=== PATIENT | female | born 1995 | race African-American/Black ===

== ENCOUNTER → 2016-12-24 | Outpatient (CLI) | payer BC ==
[2016-12-24 08:28] LABS: ALT 34 U/L (9-52); AST 28 U/L (14-36); Alkaline Phosphatase 37 U/L (38-126); Anion Gap 9 mmol/L; Blood Urea Nitrogen 10 mg/dL (7-17); Calcium 9.9 mg/dL (8.4-10.2); Carbon Dioxide 26 mmol/L (22-30); Chloride 105 mmol/L (98-107); Cholesterol 226 mg/dL (<200); Glucose 87 mg/dL (74-99); HDL Cholesterol 82 mg/dL (40-60); Non-African American GFR(MDRD) >60 (>60 ml/min/1.73 sqM); Potassium 4.7 mmol/L (3.5-5.1); Sodium 140 mmol/L (137-145); Total Bilirubin 0.5 mg/dL (0.2-1.3); Total Protein 7.6 g/dL (6.3-8.2); Triglycerides 66 mg/dL (<150)
== END | disposition home or self-care (01) ==
LOC: LABWHC1 07:29
PROVIDERS: ATTEND Internal Medicine Endocrinology, Diabetes & Metabolism
DX: E10.65 Type 1 diabetes mellitus with hyperglycemia (principal); E03.8 Other specified hypothyroidism
CPT/HCPCS: 36415; 80053; 80061; 82043; 84443

== ENCOUNTER → 2017-05-09 | Outpatient (CLI) | payer BC ==
[2017-05-09 12:37] LABS: Cholesterol 201 mg/dL (<200); HDL Cholesterol 74 mg/dL (40-60)
== END | disposition home or self-care (01) ==
LOC: LABWHC1 11:39
PROVIDERS: ATTEND Internal Medicine Endocrinology, Diabetes & Metabolism
DX: E10.65 Type 1 diabetes mellitus with hyperglycemia (principal)
CPT/HCPCS: 36415; 80061

== ENCOUNTER → 2018-10-09 | Outpatient (CLI) | payer OTHER ==
[2018-10-09 17:56] LABS: Albumin 4.4 g/dL (3.80-4.90); Albumin/Globulin Ratio 1.83 (1.20-2.10); Anion Gap 5.9 mmol/L (4.00-12.00); Calcium 9.6 mg/dL (8.7-10.3); Carbon Dioxide 29.1 mmol/L (21.6-31.8); Globulin 2.4 g/dL (1.6-3.3); LDL Cholesterol,Calculated 133.2 mg/dL (0.0-131.0); Potassium 4.1 mmol/L (3.5-5.5); Total Bilirubin 0.6 mg/dL (0.3-1.2); Total Protein 6.8 g/dL (6.2-8.2); VLDL Calculation 14.8 mg/dL (5.00-40.00)
[2018-10-09 18:52] LABS: Hemoglobin A1C 9.3 % (4.0-6.0)
== END | disposition home or self-care (01) ==
LOC: LABWHC1 11:21
PROVIDERS: ATTEND Internal Medicine Endocrinology, Diabetes & Metabolism
DX: E10.65 Type 1 diabetes mellitus with hyperglycemia (principal); E03.8 Other specified hypothyroidism
CPT/HCPCS: 36415; 80053; 80061; 82043; 82570; 83036; 84443

== ENCOUNTER → 2020-04-18 | Outpatient (CLI) | payer BC ==
[2020-04-18 15:13] LABS: Hemoglobin A1C 9.5 % (4.0-6.0)
[2020-04-18 16:52] LABS: ALT 10 U/L (8-44); AST 14 U/L (13-35); Albumin/Globulin Ratio 1.59 (1.60-3.17); Alkaline Phosphatase 51 U/L (41-126); BUN/Creat Ratio 11.11 Ratio (12.00-20.00); Calcium 9.6 mg/dL (8.7-10.3); Carbon Dioxide 27.1 mmol/L (21.6-31.8); Chloride 105 mmol/L (96-109); Chol/HDL Ratio 2.42; Cholesterol 225 mg/dL (0-200); Globulin 2.7 g/dL (1.6-3.3); Glucose 75 mg/dL (70-110); Non-African American GFR(CKD) 88.9 (60.0-200.0); Potassium 3.9 mmol/L (3.5-5.5); Sodium 139 mmol/L (135-145); Total Bilirubin 0.3 mg/dL (0.2-1.2); Triglycerides <50.0 mg/dL (0.0-149.0)
== END | disposition home or self-care (01) ==
LOC: LABWHC1 07:11
PROVIDERS: ATTEND Internal Medicine Endocrinology, Diabetes & Metabolism
DX: E10.65 Type 1 diabetes mellitus with hyperglycemia (principal)
CPT/HCPCS: 36415; 80053; 80061; 83036; 84443

== ENCOUNTER → 2021-06-28 | Outpatient (CLI) | payer BC ==
--- NOTE | 2021-06-29 10:18 | US ---
EXAMINATION TYPE: US pelvic complete DATE OF EXAM: 06/28/2021 COMPARISON: NONE CLINICAL HISTORY: N94.10 Unspecified dyspareunia. Intermittent pain during intercourse x couple years TECHNIQUE: . Transabdominal sonographic images of the pelvis were acquired. Date of LMP: 06/28/2021 EXAM MEASUREMENTS: Uterus: 8.2 x 3.5 x 5.0 cm Endometrial Stripe: 0.4 cm Right Ovary: 3.7 x 1.6 x 2.0 cm Left Ovary: cm 1. Uterus: anteverted 2. Endometrium: wnl 3. Right Ovary: wnl 4. Left Ovary: not seen within left adnexa 5. Bilateral Adnexa: wnl 6. Posterior cul-de-sac: wnl Midline pelvis superior to uterus and bladder: 8.3 x 5.1 x 8.3cm anechoic mass seen Anteverted uterus. Superior to uterus and bladder there is 8.3 x 5.1 x 8.3 cm focal fluid collection or more likely thin-walled cyst or cystic mass. No free fluid in pelvic cul-de-sac. Normal-sized right ovary with peripheral follicles. Left ovary not clearly seen. IMPRESSION: There is 8.3 cm thin-walled cyst or cystic lesion above the bladder would favor left ovar mikhail in etiology. Differential would include large bladder diverticulum. Other etiologies not excluded . Advise follow-up imaging with contrast-enhanced CT and/or MRI to further evaluate.
== END | disposition home or self-care (01) ==
LOC: RADUSWWP 16:19
PROVIDERS: ATTEND Family Medicine
DX: N94.10 Unspecified dyspareunia (principal)
CPT/HCPCS: 76856

== ENCOUNTER → 2021-08-02 | Outpatient (CLI) | payer BC ==
--- NOTE | 2021-08-03 10:39 | MR ---
MRI abdomen with and without contrast. HISTORY: Dominant no pelvic swelling rule out mass. COMPARISON: None. TECHNIQUE: Multiecho multiplanar images of the abdomen were obtained with and without contrast. Multi phase postcontrast imaging was obtained. FINDINGS: The visualized lung bases are clear. The gallbladder is normal and there is no gallstones or biliary ductal dilatation or gallbladder dist ention. There is no focal mass or organomegaly involving the liver, pancreas, spleen or adrenal glands. The kidneys excrete contrast promptly and symmetrically and there is no solid renal mass or hydroneph rosis. There is no retroperitoneal adenopathy or hemorrhage in the caliber of the abdominal aorta 11. 6 x 8.5 by lobe fluid-filled mass with a thin imperceptible wall. It is in the midline pelvis in the projects slightly greater to the right of midline is normal. There is no free intraperitoneal air or fluid. There is no bowel dilatation to suggest obstruction The pelvis is not imaged in its entirety but on the coronal images there is a large 8.5 x 11.6 cm thi n-walled fluid-filled bilobed mass in the pelvis projecting greater to the right of midline. This is situated immediately superior to the urinary bladder and most likely represents a large ovarian cyst MRI dedicated to the pelvis would be useful for further evaluation. IMPRESSION: 1. No abnormality within the abdomen. 2. Large fluid-filled mass within the pelvis possibly representing an ovarian cyst. A dedicated MRI o f the pelvis would be useful for further evaluation, see above.
== END | disposition home or self-care (01) ==
LOC: RADMRIMAIN 20:12
PROVIDERS: ATTEND Family Medicine
DX: R19.00 Intra-abdominal and pelvic swelling, mass and lump, unspecified site (principal)
CPT/HCPCS: 74183; A9585

== ENCOUNTER → 2021-08-05 | Outpatient (CLI) | payer BC ==
--- NOTE | 2021-08-06 06:41 | MR ---
EXAMINATION TYPE: MR pelvis wo/w con DATE OF EXAM: 08/05/2021 COMPARISON: MR scan 08/02/2021 HISTORY: Pelvic pain after intercourse CONTRAST: Standard multiplanar, multisequence MRI departmental protocol images were obtained without contrast a nd with 7 mL intravenous Gadavist gadolinium contrast. Bladder distends smoothly. Uterus is retroverted and anteflexed. There is small amount of free fluid in the cul-de-sac. There is a large cyst in the pelvis which is sharply marginated and measures 11 x 6.8 cm. This is in the midline and consistent with ovarian cyst. Sacroiliac joints appear intact. Hip joints appear intact. Proximal femurs appear normal. Contrast images show no pathologic enhancement. IMPRESSION: Large cystic pelvic mass not changed in size compared to recent exam. This is consistent with ovarian cyst. No evidence of solid pelvic mass.
== END | disposition home or self-care (01) ==
LOC: RADMRIMAIN 20:11
PROVIDERS: ATTEND Family Medicine
DX: R19.00 Intra-abdominal and pelvic swelling, mass and lump, unspecified site (principal)
CPT/HCPCS: 72197; A9585

== ENCOUNTER 2021-10-18 06:05 | Day surgery (SDC) | payer BC ==
[2021-10-14 08:53] VITALS: BMI 27.1
--- NOTE | 2021-10-17 14:50 | P.HPOB ---
History of Present Illness H&P Date: 10/17/21 Chief Complaint: pelvic pain 25 year old G0 presents for diagnostic laparoscopy and possible aspiration of ovarian cyst with da cheri. Review of Systems All systems: negative Constitutional: Denies chills, Denies fever Eyes: denies blurred vision, denies pain Ears, nose, mouth and throat: Denies headache, Denies sore throat Cardiovascular: Denies chest pain, Denies shortness of breath Respiratory: Denies cough Gastrointestinal: Denies abdominal pain, Denies diarrhea, Denies nausea, Denies vomiting Genitourinary: Denies dysuria, Denies hematuria Musculoskeletal: Denies myalgias Integumentary: Denies pruritus, Denies rash Neurological: Denies numbness, Denies weakness Psychiatric: Denies anxiety, Denies depression Endocrine: Denies fatigue, Denies weight change Past Medical History Past Medical History: Diabetes Mellitus, Thyroid Disorder Additional Past Medical History / Comment(s): type I diabetes History of Any Multi-Drug Resistant Organisms: None Reported Past Surgical History: No Surgical Hx Reported Past Anesthesia/Blood Transfusion Reactions: No Reported Reaction Smoking Status: Never smoker - Past Family History Mother Family Medical History: No Reported History Medications and Allergies Home Medications Medication Instructions Recorded Confirmed Type Insulin Aspart (For Pump) [NovoLOG 0.01 unit SQ-PUMP CONTINUOUS 10/14/21 10/14/21 History (For Pump)] Levothyroxine Sodium [Synthroid] 50 mcg PO DAILY 10/14/21 10/14/21 History Allergies Allergy/AdvReac Type Severity Reaction Status Date / Time No Known Allergies Allergy Verified 10/14/21 08:44 Exam Osteopathic Statement: *. No significant issues noted on an osteopathic structural exam other than those noted in the History and Physical/Consult. HEart: RRR Lungs: CTAB Abdomen: neg ghada's Extremeties: neg ghada's Assessment and Plan (1) Ovarian cyst Status: Acute Code(s): N83.209 - UNSPECIFIED OVARIAN CYST, UNSPECIFIED SIDE SNOMED Code(s): 10993346 Plan: 1. diagnostic laparoscopy with possible aspiration of ovarian cyst, possible oopherectomy using da cheri.
[~2021-10-18 06:05] MED LIST: DEXAMETHASONE SOD PHOSPHATE 4 MG/ML 1 ML VIAL IV ONE; LACTATED RINGERS 1,000 ML IV SCH; MIDAZOLAM 2 MG/2 ML VIAL IV PRN; ONDANSETRON 4 MG/2 ML VIAL IVP ONE; Pre Op ABX Message 1 EACH MISC MISCELLANE ONE; SCOPOLAMINE 1.5MG/72HR PATCH TRANSDERM ONE
[2021-10-18 07:03] LABS: Glucose,Whole Blood 275 mg/dL (75-99)
[2021-10-18] MEDS ORDERED: MIDAZOLAM 2 MG/2 ML VIAL IVP ONE (07:21)
[2021-10-18] MEDS ORDERED: fentaNYL (PF) 50 MCG/ML 2 ML AMP IVP ONE (07:21)
[2021-10-18] MEDS ORDERED: fentaNYL (PF) 50 MCG/ML 2 ML AMP ONE (07:30)
[2021-10-18] MEDS ORDERED: PHENYLEPHRINE-0.9% NACL SYG 1,000 MCG/10 ML SYRINGE ONE (07:30)
[2021-10-18] MEDS ORDERED: NEOSTIGMINE 1 MG/ML 10 ML VIAL ONE (07:30)
[2021-10-18] MEDS ORDERED: MIDAZOLAM 2 MG/2 ML VIAL ONE (07:30)
[2021-10-18] MEDS ORDERED: ROCURONIUM 10 MG/ML (5 ML VIAL) IV ONE (07:30)
[2021-10-18] MEDS ORDERED: PROPOFOL 10 MG/ML 20 ML VIAL IV ONE (07:30)
[2021-10-18] MEDS ORDERED: SODIUM CHLORIDE 0.9% (PF) 10 ML VIAL ONE (07:30)
[2021-10-18] MEDS ORDERED: SUCCINYLCHOLINE CHLORIDE 100 MG/5 ML SYR IV ONE (07:30)
[2021-10-18] MEDS ORDERED: GLYCOPYRROLATE 0.2 MG/ML 2 ML VIAL ONE (07:30)
[2021-10-18] MEDS ORDERED: ROPIVACAINE 5 MG/ML 30 ML VIAL ONE (07:30)
[2021-10-18] MEDS ORDERED: BUPIVACAINE (PF) 0.25% 30 ML VIAL SQ ONE (08:16)
--- NOTE | 2021-10-18 08:33 | P.ANPRN ---
Procedure Note - Anesthesia - Nerve Block Performed Bilateral Erector Spinae Single Time Out Performed: Yes (720) Date of Procedure: 10/18/21 Procedure Start Time: Procedure Stop Time: Location of Patient: PreOp Indication: Acute Post-Operative Pain, Requested by Surgeon Specifically requested for management of pain by DrLilly: Shannon Merrill Sedation Type: Sedate with meaningful contact maintained Preparation: Sterile Prep Position: Supine Catheter: None Needle Types: Pajunk Needle Gauge: 21 Ultrasound used to visualize needle placement: Yes Ultrasound used to observe medication spread: Yes Injectate: 0.5% Ropivacaine (see comment for volume) (15cc + 15cc nacl pf each side) Blood Aspirated: No Pain Paresthesia on Injection Noted: No Resistance on Injection: Normal Image Stored and Saved: Yes Events: Uneventful and Well Tolerated
[2021-10-18] MEDS ORDERED: LACTATED RINGERS 1,000 ML IV ONE ×2 (08:41→10:20)
--- NOTE | 2021-10-18 08:51 | P.OP ---
Date of Procedure: 10/18/21 Preoperative Diagnosis: 1. pelvic pain 2. ovarian cyst Postoperative Diagnosis: 1. pelvic pain 2. ovarian cyst on left Procedure(s) Performed: Agnostic laparoscopy with aspiration of left ovarian cyst using da Lidia Anesthesia: PAULINO Surgeon: Shannon Merrill Estimated Blood Loss (ml): 3 IV fluids (ml): 300 Urine output (ml): 250 Pathology: none sent Condition: stable Disposition: PACU Operative Findings: Large left ovarian cyst with 250 mL of serous fluid aspirated. Normal uterus and normal fallopian tubes and normal right ovary and tube Description of Procedure: Patient taken the operating room where general anesthesia was obtained without difficulty. She is prepped and draped in normal sterile fashion dorsal lithotomy position, legs placed in the Cristi stirrups. Weighted speculum placed in the vagina and the anterior lip the cervix was grasped with single-tooth tenaculum. The uterus sounded to 9 cm. the kroner manipulator was placed. Pérez catheter was also placed. Attention was then turned to the abdomen and gloves were changed. A 5 mm supraumbilical incision was made the scalpel and a 5 mm optical trocar was placed under direct visualization. 10 cm to the right of this and 2 cm down a 5 mm incision was made and 8 mm da Lidia port was placed under direct visualization. Same measurements on the opposite side of the patient's abdomen, the 5 mm incision was made and 8 mm da Lidia port was placed under direct visualization. In the left upper quadrant a 10 mm incision was made and a 10 mm optical trocar was placed under direct visualization. The 5 mm optical trocar was then replaced with the 8 mm da Lidia camera port. The laparoscopic needle aspirator was placed through a port under direct visualization. To a syringe and fluid was aspirated from the ovarian cyst. 250 mL of serous fluid was removed. The robot was docked on patient's right side. The camera was introduced and then the monopolar curved scissor and [place] bipolar placed under direct visualization. I broke scrub and went to the physician console. I opened the whole in the ovarian cyst a little more with the monopolar curved scissors and the suction was introduced and more fluid was removed. The larger hole was made in the cyst so that the fluid would not reaccumulate. The ovary itself looked like good healthy ovarian tissue, this was placed into the pelvis the right fallopian tube was viewed and normal. Hemostasis was again assured and the pelvis was irrigated. All instruments were removed from the abdomen and the robot was undocked. I scrubbed back in to perform a cystoscopy. There were jets from both ureteral orifices. The abdominal incisions were closed with 4-0 Vicryl in a subcuticular fashion. Patient tolerated the procedure well, sponge and instrument counts correct 2 and she was taken to recovery room in stable condition condition
[2021-10-18 09:02] VITALS: TEMP 98.7
[2021-10-18 09:02] LABS: Glucose,Whole Blood 259 mg/dL (75-99)
[2021-10-18] MEDS: HYDROmorphone 0.5 MG/0.5 ML SYRINGE IVP PRN ×2 (09:18→09:32)
[2021-10-18] MEDS ORDERED: ONDANSETRON 4 MG/2 ML VIAL IVP ONE (09:24)
[2021-10-18 11:25] VITALS: BP 119/71; PULSE 78; RESP 18
== END 2021-10-18 11:55 | disposition home or self-care (01) ==
LOC: OR 06:05
PROVIDERS: ATTEND Obstetrics & Gynecology
DX: N83.202 Unspecified ovarian cyst, left side (principal); E07.9 Disorder of thyroid, unspecified; E10.9 Type 1 diabetes mellitus without complications; Z79.890 Hormone replacement therapy; Z79.4 Long term (current) use of insulin; Z96.41 Presence of insulin pump (external) (internal)
CPT/HCPCS: 64999; 49322; J2250; J2710; J2405; J3010; J2795; J2370; J0330; J2704; J1170; J1790

== ENCOUNTER → 2022-03-17 | Outpatient (CLI) | payer BC ==
[2022-03-17 10:52] LABS: Microalbumin Creatinine Ratio <30 mg/g Creat (0-30)
[2022-03-17 10:57] LABS: ALT 7 U/L (8-44); AST 16 U/L (13-35); African American GFR (CKD) 137.6 (60.0-200.0); Albumin 4.3 g/dL (3.8-4.9); Albumin/Globulin Ratio 1.26 (1.60-3.17); Alkaline Phosphatase 62 U/L (41-126); BUN/Creat Ratio 16.71 Ratio (12.00-20.00); Blood Urea Nitrogen 11.7 mg/dL (9.0-27.0); Calcium 9.5 mg/dL (8.7-10.3); Carbon Dioxide 24.3 mmol/L (20.0-27.5); Chloride 101 mmol/L (96-109); Globulin 3.4 g/dL (1.6-3.3); Glucose 140 mg/dL (70-110); LDL Cholesterol,Calculated 140.6 mg/dL (0.0-131.0); Non-African American GFR(CKD) 118.7 (60.0-200.0); Potassium 4.3 mmol/L (3.5-5.5); Sodium 136 mmol/L (135-145); Total Protein 7.7 g/dL (6.2-8.2); VLDL Calculation 11.78 mg/dL (5.00-40.00)
== END | disposition home or self-care (01) ==
LOC: LABWHC1 08:07
PROVIDERS: ATTEND Internal Medicine Endocrinology, Diabetes & Metabolism
DX: E10.65 Type 1 diabetes mellitus with hyperglycemia (principal); E03.8 Other specified hypothyroidism
CPT/HCPCS: 36415; 80053; 80061; 82043; 82570; 84443

== ENCOUNTER → 2023-07-29 | Outpatient (CLI) | payer BC ==
[2023-07-29 11:46] LABS: ALT 10 U/L (8-44); AST 14 U/L (13-35); Albumin 4.1 d/dL (3.8-4.9); Albumin/Globulin Ratio 1.37 Ratio (1.60-3.17); Alkaline Phosphatase 57 U/L (41-126); BUN/Creat Ratio 14.25 Ratio (12.00-20.00); Blood Urea Nitrogen 11.4 mg/dL (9.0-27.0); Calcium 9.6 mg/dL (8.7-10.3); Carbon Dioxide 24.9 mmol/L (21.6-31.8); Chloride 101 mmol/L (96-109); Chol/HDL Ratio 3.06 Ratio; Glucose 182 mg/dL (70-110); Potassium 4.7 mmol/L (3.5-5.5); Sodium 136 mmol/L (135-145); Total Bilirubin <0.2 mg/dL (0.3-1.2); Total Protein 7.1 d/dL (6.2-8.2)
[2023-07-29 19:49] LABS: Microalbumin Creatinine Ratio <27 mg/g Cr (0-30); Urine Creatinine 44.4 mg/dL (28.0-217.0)
== END | disposition home or self-care (01) ==
LOC: LABWHC1 08:05
PROVIDERS: ATTEND Internal Medicine Endocrinology, Diabetes & Metabolism
DX: E10.65 Type 1 diabetes mellitus with hyperglycemia (principal); E03.8 Other specified hypothyroidism; E55.9 Vitamin D deficiency, unspecified
CPT/HCPCS: 36415; 80053; 80061; 82043; 82306; 82570; 84443

== ENCOUNTER 2023-08-15 10:28 | Emergency (ER) | payer BC ==
--- NOTE | 2023-08-15 10:56 | ED ---
Female Urogenital HPI - General Chief complaint: Urogenital Stated complaint: possible uti Time Seen by Provider: 08/15/23 10:34 Source: patient, RN notes reviewed Mode of arrival: ambulatory Limitations: no limitations - History of Present Illness Initial comments: This is a 27-year-old female who presents to the emergency department for concerns of a UTI. States that over the last 2 days she has had increased urinary frequency, pressure, burning, and dribbling. She's been drinking water and taking AZO, however she has not gotten better. States she is diabetic and prone to UTIs, and this feels the same. Denies any concerns for STD exposure. She does not have pain in the back, fevers, chills, nausea, or vomiting. MD Complaint: dysuria - Related Data Home Medications Medication Instructions Recorded Confirmed Insulin Aspart (For Pump) [NovoLOG 0.01 unit SQ-PUMP CONTINUOUS 10/14/21 11/14/22 (For Pump)] Levothyroxine Sodium [Synthroid] 50 mcg PO DAILY 10/14/21 11/14/22 Ibuprofen [Motrin Ib] 200 mg PO DIRECTED PRN 11/14/22 11/14/22 Previous Rx's Medication Instructions Recorded Acetaminophen-Codeine 300-30mg 1 - 2 tab PO Q6H PRN #20 tablet 11/20/22 [Tylenol #3] Ibuprofen [Motrin] 600 mg PO Q6HR PRN #30 tab 11/20/22 Nitrofurantoin Monohyd/M-Cryst 100 mg PO Q12HR 5 Days #10 cap 08/15/23 [Macrobid] Phenazopyridine [Pyridium] 200 mg PO TID PRN #9 tablet 08/15/23 Allergies Allergy/AdvReac Type Severity Reaction Status Date / Time No Known Allergies Allergy Verified 08/15/23 10:31 Review of Systems ROS Statement: Those systems with pertinent positive or pertinent negative responses have been documented in the HPI. ROS Other: All systems not noted in ROS Statement are negative. Past Medical History Past Medical History: Diabetes Mellitus, Thyroid Disorder Additional Past Medical History / Comment(s): type I diabetes History of Any Multi-Drug Resistant Organisms: None Reported Past Surgical History: No Surgical Hx Reported Additional Past Surgical History / Comment(s): wisdom teeth, laproscopic for ovarian cycst Past Anesthesia/Blood Transfusion Reactions: No Reported Reaction Past Psychological History: No Psychological Hx Reported Smoking Status: Never smoker Past Alcohol Use History: Occasional Past Drug Use History: None Reported - Past Family History Mother Family Medical History: No Reported History Additional Family Medical History / Comment(s): graves disease General Exam Limitations: no limitations General appearance: alert, in no apparent distress Head exam: Present: atraumatic, normocephalic, normal inspection Respiratory exam: Present: normal lung sounds bilaterally. Absent: respiratory distress, wheezes, rales, rhonchi, stridor Cardiovascular Exam: Present: regular rate, normal rhythm, normal heart sounds. Absent: systolic murmur, diastolic murmur, rubs, gallop, clicks GI/Abdominal exam: Present: soft, normal bowel sounds. Absent: distended, tenderness, guarding, rebound, rigid Back exam: Absent: CVA tenderness (R), CVA tenderness (L) Neurological exam: Present: alert, oriented X3, CN II-XII intact Psychiatric exam: Present: normal affect, normal mood Skin exam: Present: warm, dry, intact, normal color. Absent: rash Course Vital Signs 08/15/23 08/15/23 10:28 12:10 Temperature 98.7 F 98.8 F Pulse Rate 110 H 92 Respiratory 18 16 Rate Blood Pressure 137/91 124/87 O2 Sat by Pulse 99 99 Oximetry Medical Decision Making - Medical Decision Making This is a 27-year-old female who presents to the emergency department for dysuria. Was pt. sent in by a medical professional or institution? @ -No Did you speak to anyone other than the patient for history? @ -No Did you review nursing and triage notes? @ -Yes, and I agree, it is accurate with regards to the patient's symptoms. Were old charts reviewed? @ -No Differential Diagnosis? @ -Differential Urinary Symptoms: UTI, STD, pyelonephritis, injury, yeast infection, this is not meant to be an all-inclusive list. EKG interpreted by me (3pts min.)? @ -Not obtained X-rays interpreted by me (1pt min.)? @ -Not obtained CT interpreted by me (1pt min.)? @ -Not obtained U/S interpreted by me (1pt. min.)? @ -Not obtained What testing was considered but not performed? (CT, X-rays, U/S, labs)? Why? @ -None What meds were considered but not given? Why? @ -None Did you discuss the management of the patient with other professionals? @ -No Did you reconcile home meds? @ -No Was smoking cessation discussed for >3mins.? @ -No Was critical care preformed (if so, how long)? @ -No Were there social determinants of health that impacted care today? How? (Homelessness, low income, unemployed, alcoholism, drug addiction, transportation, low edu. Level, literacy, decrease access to med. care, nursing home, rehab)? @ -No Was there de-escalation of care discussed even if they declined? (Discuss DNR or withdrawal of care, Hospice)? @ -No What co-morbidities impacted this encounter? (DM, HTN, Smoking, COPD, CAD, Cancer, CVA, Hep., AIDS, mental health diagnosis, sleep apnea, morbid obesity)? @ -DM Was patient admitted / discharged? @ -Discharged. Urinalysis was consistent with infection. Urine sent for culture. Prescription for Macrobid and Pyridium provided with dosing instructions reviewed. Advised she remain well-hydrated and follow up with her primary care provider for reevaluation. Undiagnosed new problem with uncertain prognosis? @ -None Drug Therapy requiring intensive monitoring for toxicity (Heparin, Nitro, Insulin, Cardizem)? @ -None Were any procedures done? @ -None Diagnosis/symptom? @ -UTI Acute, or Chronic, or Acute on Chronic? @ -Acute Uncomplicated (without systemic symptoms) or Complicated (systemic symptoms)? @ -Uncomplicated Side effects of treatment? @ -None Exacerbation, Progression, or Severe Exacerbation] @ -Not applicable Poses a threat to life or bodily function? @ -No Return precautions reviewed in depth, the patient is instructed to return to the emergency department with any new, worsening, or concerning symptoms. Patient verbalized understanding. This case was discussed in detail with the attending ED physician, Dr. Edmond. Presentation, findings, and treatment plan discussed in detail as well. - Lab Data Lab Results 08/15/23 08/15/23 Range/Units 10:55 10:55 Urine Color Colorless Urine Appearance Cloudy H (Clear) Urine pH 5.5 (5.0-8.0) Ur Specific Elysian 1.016 (1.001-1.035) Urine Protein Negative (Negative) Urine Glucose (UA) Negative (Negative) Urine Ketones Negative (Negative) Urine Blood Negative (Negative) Urine Nitrite Negative (Negative) Urine Bilirubin Negative (Negative) Urine Urobilinogen <2.0 (<2.0) mg/dL Ur Leukocyte Esterase Large H (Negative) Urine RBC 5 (0-5) /hpf Urine WBC 164 H (0-5) /hpf Ur Squamous Epith Cells 5 H (0-4) /hpf Urine Bacteria Rare H (None) /hpf Urine HCG, Qual Not Detected (Not Detectd) Disposition Clinical Impression: Urinary tract infection Disposition: HOME SELF-CARE Instructions (If sedation given, give patient instructions): Urinary Tract Infection in Women (ED) Additional Instructions: Return to the emergency department with any new, worsening, or concerning symptoms. Take the antibiotic as prescribed for 5 days. You can use the Pyridium up to 3 times daily for burning with urination. Follow up with your primary care provider in 1-2 days. Prescriptions: Nitrofurantoin Monohyd/M-Cryst [Macrobid] 100 mg PO Q12HR 5 Days #10 cap Phenazopyridine [Pyridium] 200 mg PO TID PRN #9 tablet PRN Reason: Pain Is patient prescribed a controlled substance at d/c from ED?: No Referrals: Marcelo Rivers DO [Primary Care Provider] - 1-2 days
[2023-08-15 11:19] LABS: Appearance,Urine Cloudy (Clear); Bacteria,Urine Rare /hpf; Bilirubin,Urine Negative (Negative); Blood,Urine Negative (Negative); Color,Urine Colorless; Glucose,Urine (UA) Negative (Negative); Ketones,Urine Negative (Negative); Leukocyte Esterase,Urine Large (Negative); Nitrite,Urine Negative (Negative); PH, Urine 5.5 (5.0-8.0); Protein,Urine Negative (Negative); RBC,Urine 5 /hpf (0-5); Specific Gravity,Urine 1.016 (1.001-1.035); Squamous Epithelial Cell,Urine 5 /hpf (0-4); Urobilinogen,Urine <2.0 mg/dL (<2.0); WBC,Urine 164 /hpf (0-5)
[2023-08-15 12:34] VITALS: BP 124/87; PULSE 92; RESP 16; TEMP 98.8
== END 2023-08-15 12:11 | disposition home or self-care (01) ==
LOC: EC 10:28
DX: N39.0 Urinary tract infection, site not specified (principal); E11.9 Type 2 diabetes mellitus without complications; E07.9 Disorder of thyroid, unspecified; Z79.890 Hormone replacement therapy; Z79.4 Long term (current) use of insulin
CPT/HCPCS: 81001; 81025; 87086; 99283

== ENCOUNTER → 2023-12-30 | Outpatient (CLI) | payer BC ==
[2023-12-30 11:30] LABS: Microalbumin Creatinine Ratio <14 mg/g Cr (0-30); Urine Creatinine 88.3 mg/dL (28.0-217.0)
[2023-12-30 11:40] LABS: ALT 8 U/L (8-44); AST 13 U/L (13-35); Albumin 4.2 g/dL (3.8-4.9); Alkaline Phosphatase 61 U/L (41-126); BUN/Creat Ratio 12.75 Ratio (12.00-20.00); Blood Urea Nitrogen 10.2 mg/dL (9.0-27.0); Calcium 9.4 mg/dL (8.7-10.3); Carbon Dioxide 25.9 mmol/L (21.6-31.8); Chloride 102 mmol/L (96-109); Glucose 126 mg/dL (70-110); Potassium 5.2 mmol/L (3.5-5.5); Sodium 138 mmol/L (135-145); Total Bilirubin <0.2 mg/dL (0.3-1.2); Total Protein 7.2 g/dL (6.2-8.2)
== END | disposition home or self-care (01) ==
LOC: LABWHC1 07:31
PROVIDERS: ATTEND Internal Medicine Endocrinology, Diabetes & Metabolism
DX: E10.65 Type 1 diabetes mellitus with hyperglycemia (principal)
CPT/HCPCS: 36415; 80053; 82043; 82570; 83036; 84443

== ENCOUNTER → 2024-01-15 | Outpatient (CLI) | payer BC ==
--- NOTE | 2024-01-15 11:14 | XR ---
EXAMINATION TYPE: XR shoulder complete 3 views LT DATE OF EXAM: 01/15/2024 Comparison: None Clinical History: 28-year-old female M25.512 PAIN IN LEFT SHOULDER Findings: There is some irregularity of the acromion. Limited assessment due to overlying external artifact. AC joint appears congruent and intact. Subacromial space is preserved. Otherwise, no acute fracture, jain bluxation, dislocation seen. Impression: There is irregularity at the tip of the acromion adjacent to the AC joint. Query any focal pain or pr evious trauma to this location to exclude an age indeterminate chip fracture. Otherwise, no acute oss eous abnormality seen.
== END | disposition home or self-care (01) ==
LOC: RADXRMAIN 10:17
PROVIDERS: ATTEND Family Medicine
DX: M25.512 Pain in left shoulder (principal)

== ENCOUNTER → 2024-07-04 | Outpatient (CLI) | payer BC ==
[2024-07-04 11:30] LABS: Microalbumin Creatinine Ratio <4 mg/g Cr (0-30)
[2024-07-04 11:32] LABS: ALT 10 U/L (8-44); AST 11 U/L (13-35); Albumin 4.1 g/dL (3.8-4.9); Albumin/Globulin Ratio 1.41 Ratio (1.60-3.17); Alkaline Phosphatase 59 U/L (41-126); BUN/Creat Ratio 6.56 Ratio (12.00-20.00); Blood Urea Nitrogen 5.9 mg/dL (9.0-27.0); Calcium 9.1 mg/dL (8.7-10.3); Carbon Dioxide 25.9 mmol/L (21.6-31.8); Chloride 101 mmol/L (96-109); Chol/HDL Ratio 3.54 Ratio; Globulin 2.9 g/dL (1.6-3.3); Glucose 233 mg/dL (70-110); LDL Cholesterol,Calculated 151.7 mg/dL (0.0-131.0); Potassium 4.8 mmol/L (3.5-5.5); Sodium 137 mmol/L (135-145); Total Bilirubin 0.5 mg/dL (0.3-1.2); VLDL Calculation 10.46 mg/dL (5.00-40.00)
== END | disposition home or self-care (01) ==
LOC: LABWHC1 08:15
PROVIDERS: ATTEND Internal Medicine Endocrinology, Diabetes & Metabolism
DX: E10.65 Type 1 diabetes mellitus with hyperglycemia (principal)
CPT/HCPCS: 36415; 80053; 80061; 82043; 82570; 83036; 84443

== ENCOUNTER → 2024-10-24 | Outpatient (CLI) | payer BC ==
[2024-10-24 10:59] LABS: ALT 9 U/L (8-44); AST 13 U/L (13-35); Albumin 4.3 g/dL (3.8-4.9); Albumin/Globulin Ratio 1.48 Ratio (1.60-3.17); Alkaline Phosphatase 57 U/L (41-126); BUN/Creat Ratio 11.11 Ratio (12.00-20.00); Calcium 9.5 mg/dL (8.7-10.3); Carbon Dioxide 28.3 mmol/L (21.6-31.8); Chloride 104 mmol/L (96-109); Chol/HDL Ratio 3.98 Ratio; Globulin 2.9 g/dL (1.6-3.3); Glucose 139 mg/dL (70-110); LDL Cholesterol,Calculated 177.5 mg/dL (0.0-131.0); Sodium 139 mmol/L (135-145); Total Bilirubin 0.2 mg/dL (0.3-1.2); Total Protein 7.2 g/dL (6.2-8.2); VLDL Calculation 11.16 mg/dL (5.00-40.00)
[2024-10-24 19:40] LABS: Microalbumin Creatinine Ratio <8 mg/g Cr (0-30)
== END | disposition home or self-care (01) ==
LOC: LABWHC1 07:20
PROVIDERS: ATTEND Internal Medicine Endocrinology, Diabetes & Metabolism
DX: E10.65 Type 1 diabetes mellitus with hyperglycemia (principal); E03.8 Other specified hypothyroidism
CPT/HCPCS: 36415; 80053; 80061; 82043; 82570; 83036; 84443

== ENCOUNTER → 2025-02-14 | Outpatient (CLI) | payer BC ==
[2025-02-14 15:50] LABS: ALT 11 U/L (8-44); AST 15 U/L (13-35); Albumin 4.2 g/dL (3.8-4.9); Alkaline Phosphatase 59 U/L (41-126); BUN/Creat Ratio 11.75 Ratio (12.00-20.00); Blood Urea Nitrogen 9.4 mg/dL (9.0-27.0); Calcium 9.7 mg/dL (8.7-10.3); Chloride 100 mmol/L (96-109); Chol/HDL Ratio 3.39 Ratio; Glucose 263 mg/dL (70-110); LDL Cholesterol,Calculated 158.1 mg/dL (0.0-131.0); Potassium 5.1 mmol/L (3.5-5.5); Sodium 135 mmol/L (135-145); Total Bilirubin 0.3 mg/dL (0.3-1.2); Total Protein 7.2 g/dL (6.2-8.2); VLDL Calculation 12.62 mg/dL (5.00-40.00)
== END | disposition home or self-care (01) ==
LOC: LABWHC1 10:53
PROVIDERS: ATTEND Internal Medicine Endocrinology, Diabetes & Metabolism
DX: E10.65 Type 1 diabetes mellitus with hyperglycemia (principal)
CPT/HCPCS: 36415; 80053; 80061; 83036; 84443

== ENCOUNTER → 2025-04-10 | Outpatient (CLI) | payer BC ==
[2025-04-10 10:51] LABS: ALT 10 U/L (8-44); AST 16 U/L (13-35); Albumin 4.1 g/dL (3.8-4.9); Albumin/Globulin Ratio 1.52 Ratio (1.60-3.17); Alkaline Phosphatase 54 U/L (41-126); Anion Gap 9.20 mmol/L (4.00-12.00); BUN/Creat Ratio 13.25 Ratio (12.00-20.00); Blood Urea Nitrogen 10.6 mg/dL (9.0-27.0); Calcium 9.3 mg/dL (8.7-10.3); Carbon Dioxide 24.8 mmol/L (21.6-31.8); Chloride 102 mmol/L (96-109); Cholesterol 231.00 mg/dL (0.00-200.00); Globulin 2.7 g/dL (1.6-3.3); Glucose 188 mg/dL (70-110); HDL Cholesterol 68.10 mg/dL (40.00-60.00); LDL Cholesterol,Calculated 150.1 mg/dL (0.0-131.0); Potassium 4.5 mmol/L (3.5-5.5); Sodium 136 mmol/L (135-145); Total Protein 6.8 g/dL (6.2-8.2); Triglycerides 64.10 mg/dL (0.00-149.00); VLDL Calculation 12.82 mg/dL (5.00-40.00)
== END | disposition home or self-care (01) ==
LOC: LABWHC1 07:23
PROVIDERS: ATTEND Internal Medicine Endocrinology, Diabetes & Metabolism
DX: E10.65 Type 1 diabetes mellitus with hyperglycemia (principal)
CPT/HCPCS: 36415; 80053; 80061; 82306; 83036; 84443